=== PATIENT | female | born 1965 | race Caucasian/White ===

== ENCOUNTER 2017-01-30 10:56 | Emergency (ER) | payer OTHER ==
[~2017-01-30] VITALS: Ht 165.1 cm; Wt 100.0 kg
[2017-01-30 10:58] VITALS: BP 156/83; PULSE 84; RESP 14; TEMP 98; O2SAT 99
[2017-01-30] MEDS ORDERED: IBUPROFEN 800 MG TAB PO ONE (11:30)
--- NOTE | 2017-01-30 12:35 | PD ---
HPI . Left arm injury Chief Complaint: Injury Time Seen by Provider: 11:12 Travel History International Travel<30 days: No Contact w/Intl Traveler<30days: No Traveled to known affect area: No History of Present Illness HPI 52-year-old female presents emergency department for evaluation of left arm injury that occurred last Friday. Patient went to another facility on Friday for evaluation and it was determined that she had fractured her ulna, radius and hand. Patient states she was trying to go to the bathroom in the middle the night between Friday night and Friday morning when the elastic on her pajama pants gave way and slid down her legs causing her to trip and fall. Patient states she has had an extremely difficult time following up with an orthopedist since being discharged from the other emergency department last Friday. Patient states she has tried every day and been told that his orthopedist don't take her insurance. She found an orthopedist earlier today and will take Medicare however they can't see her for another 3 weeks. Patient was instructed to bring her medical records to that appointment but when she contacted the other emergency department to get them they were going to charge her 24 dollars. She states she does not have 24 dollars. There is a splint in place to her left arm. Left hand is mildly edematous. Patient states that the edema is significantly decreased comparatively to what it has been. Left hand is neurovascularly intact. Patient denies any fevers, chills, malaise, chest pain, shortness breath, nausea, vomiting, diarrhea, lightheadedness. PFSH Past Medical History Cerebrovascular Accident: Yes ?: Not Social History Alcohol Use: No Tobacco Use: Yes (0.5 PPD) Substance Use: No Allergies-Medications (Allergen,Severity, Reaction): Coded Allergies: Sulfa (Sulfonamide Antibiotics) (Verified Allergy, Unknown, 01/30/17) doxycycline (Verified Allergy, Unknown, 01/30/17) morphine (Verified Allergy, Unknown, 01/30/17) tetracycline (Verified Allergy, Unknown, 01/30/17) Uncoded Allergies: SCALAXAN (Allergy, Unknown, 01/30/17) Reported Meds & Prescriptions Reported Meds & Active Scripts Active No Active Prescriptions or Reported Medications Review of Systems Except as stated in HPI: all other systems reviewed are Neg Physical Exam Narrative GENERAL: Well-nourished, well-developed 52-year-old female patient in no acute distress. Nontoxic appearing. SKIN: Focused skin assessment warm/dry. HEAD: Normocephalic. Atraumatic. EYES: No scleral icterus. No injection or drainage. NECK: Supple, trachea midline. No JVD or lymphadenopathy. CARDIOVASCULAR: Regular rate and rhythm without murmurs, gallops, or rubs. RESPIRATORY: Breath sounds equal bilaterally. No accessory muscle use. GASTROINTESTINAL: Abdomen soft, non-tender, nondistended. MUSCULOSKELETAL: Splint in place to left upper extremity. Left hand mildly edematous. Neurovascularly intact. BACK: Nontender without obvious deformity. No CVA tenderness. Data Data Last Documented VS Vital Signs Date Time Temp Pulse Resp B/P (MAP) Pulse Ox O2 Delivery O2 Flow Rate FiO2 01/30/17 12:53 01/30/17 10:58 98.0 84 14 99 Orders Orders Ibuprofen (Motrin) (01/30/17 11:30) [facility] Medical Decision Making Medical Screen Exam Complete: Yes Emergency Medical Condition: Yes Differential Diagnosis Differential diagnoses include but not limited to fracture, pain seeking, medical clearance, follow-up Narrative Course 52-year-old female presents emergency department for evaluation of left arm injury. Patient injured her arm by falling last Friday and was seen at [facility] on Friday. Patient states she has been unable to follow with orthopedics since then and she is out of her pain medication. Patient given 800 mg ibuprofen and medical records were attempted to be obtained from [facility]. Patient states she wants something stronger for pain. Patient states when they discharged her from [facility] that gave her Lortab 10 and they were even covering the pain and she had already taken them all. Patient becoming more hostile towards nursing staff and demanding pain medication prior to us receiving the medical records from [facility]. I was notified that the patient walked out of the room and left when I was in another patient's room. Patient left AMA. Diagnosis Primary Impression: Left against medical advice Scripts No Active Prescriptions or Reported Meds Disposition: 07 AGAINST MEDICAL ADVICE Condition: Stable CourtElvia kidd Diana LEACH Jan 30, 2017 12:35
== END 2017-01-30 15:51 | disposition left against medical advice (07) ==
LOC: NEPK 10:56
DX: Z53.21 Procedure and treatment not carried out due to patient leaving prior to being seen by health care provider (principal); S49.92XA Unspecified injury of left shoulder and upper arm, initial encounter; X58.XXXA Exposure to other specified factors, initial encounter; Z72.0 Tobacco use
CPT/HCPCS: 99282